=== PATIENT | male | born 1945 | race Caucasian/White ===

== ENCOUNTER 2023-04-15 07:24 | Inpatient (IN) ==
[2023-04-15] MEDS ORDERED: IOPAMIDOL 100 ML BOTTLE IV ONE (07:25)
[2023-04-15] MEDS ORDERED: 0.9 % SODIUM CHLORIDE 1,000 ML IV ONE (08:17)
[2023-04-15] MEDS ORDERED: ACETAMINOPHEN 1,000 MG/100 ML BAG IV ONE (08:17)
[2023-04-15 08:42] LABS: Basophils # (Auto) 0.01 K/mcL (0.00-0.30); Basophils % (Auto) 0.2 % (0.0-2.0); Eosinophils # (Auto) 0.01 K/mcL (0.00-0.70); Eosinophils % (Auto) 0.2 % (0.0-7.0); Hematocrit 48.5 % (40.1-51.0); Hemoglobin 16.2 g/dL (13.7-17.5); Lymphocytes % (Auto) 7.6 % (15.5-49.0); Mean Corpuscular HGB Conc 33.4 g/dL (31.0-36.0); Mean Platelet Volume 10.9 fL (8.8-12.5); Monocytes # (Auto) 0.66 K/mcL (0.10-0.90); Neutrophils % (Auto) 81.5 % (38.0-78.0); Platelet Count 205 K/mcL (140-440); RBC 4.85 M/mcL (4.63-6.08); Red Cell Distribution Width 13.4 % (11.5-14.5); WBC 6.6 K/mcL (4.5-11.0)
[2023-04-15 09:44] LABS: ALT/SGPT 16 U/L (<40); AST/SGOT 24 U/L (<40); Albumin 3.9 gm/dL (3.2-5.2); Albumin/Globulin Ratio 1.2 (1.0-2.3); Alkaline Phosphatase 92 U/L (39-117); Bilirubin,Total 0.6 mg/dL (0.1-1.0); Blood Urea Nitrogen 22 mg/dL (8-23); Calcium 9.2 mg/dL (8.6-10.4); Carbon Dioxide 26 mmol/L (22-30); Chloride 96 mmol/L (96-108); Globulin 3.2 gm/dL (2.2-3.7); Glomerular Filtration Rate 40; Glucose 229 mg/dL (70-105)
[2023-04-15] MEDS: 0.9 % SODIUM CHLORIDE 1,000 ML IV SCH ×4 (10:12→17:09)
[2023-04-15] MEDS ORDERED: OLANZapine 2.5 MG TABLET PO ONE (13:52)
[2023-04-15] MEDS ORDERED: OLANZapine 5 MG TABLET PO ONE (14:16)
[2023-04-15] MEDS ORDERED: OLANZapine 10 MG VIAL IM ONE (14:24)
[2023-04-15] MEDS ORDERED: DEXAMETHASONE 10 MG/ML VIAL IV ONE (15:23)
[2023-04-15] MEDS ORDERED: DEXTROSE 50% 50 ML VIAL IV PRN (16:32)
[2023-04-15] MEDS ORDERED: ONDANSETRON 4 MG/2 ML VIAL IV PRN (16:32)
[2023-04-15] MEDS ORDERED: LACTULOSE 20 GM/30 ML ORAL.SOL PO PRN (16:32)
[2023-04-15] MEDS ORDERED: SENNOSIDES 1 TABLET PO PRN (16:32)
[2023-04-15] MEDS ORDERED: METOPROLOL TARTRATE 5 MG/5 ML VIAL IV PRN (16:32)
[2023-04-15] MEDS ORDERED: HALOPERIDOL LACTATE 5 MG/ML VIAL IV PRN (16:32)
[2023-04-15] MEDS ORDERED: ACETAMINOPHEN 325 MG TABLET PO PRN (16:32)
[2023-04-15] MEDS ORDERED: DEXTROSE 31 GM ORAL.SUSP PO PRN (16:32)
[2023-04-15] MEDS ORDERED: REMDESIVIR 200 MG in 0.9 % SODIUM CHLORIDE 250 ML IV ONE (17:00)
[2023-04-15] MEDS: INSULIN LISPRO 1 UNIT/0.01 ML UNIT SQ SCH ×2 (17:14→20:59)
[2023-04-15 19:33] LABS: C-Reactive Protein 4.07 mg/dL (0.03-0.80)
[2023-04-15] MEDS ORDERED: QUEtiapine 25 MG TABLET PO SCH (21:00)
[2023-04-15] MEDS ORDERED: HEPARIN 5,000 UNIT/ML VIAL SQ SCH (21:00)
[2023-04-15] MEDS: DOCUSATE SODIUM 100 MG CAPSULE PO SCH (21:00)
[2023-04-15] MEDS ORDERED: INSULIN GLARGINE, HUMAN 1 UNIT/0.01 ML SQ SCH (21:00)
[2023-04-15] MEDS ORDERED: METOPROLOL TARTRATE 25 MG TABLET PO SCH (21:00)
[2023-04-15] MEDS: 0.9 % SODIUM CHLORIDE 10 ML SYRINGE IV SCH (21:01)
[2023-04-16] MEDS: 0.9 % SODIUM CHLORIDE 1,000 ML IV SCH (01:10)
[2023-04-16] MEDS: 0.9 % SODIUM CHLORIDE 10 ML SYRINGE IV SCH (05:43)
[2023-04-16] MEDS ORDERED: OMEPRAZOLE 20 MG CAPSULE PO SCH (07:30)
[2023-04-16 07:50] LABS: Albumin 3.3 gm/dL (3.2-5.2); Blood Urea Nitrogen 19 mg/dL (8-23); Carbon Dioxide 22 mmol/L (22-30); Chloride 105 mmol/L (96-108); Glomerular Filtration Rate 47; Glucose 176 mg/dL (70-105); Phosphorous 2.5 mg/dL (2.5-4.5)
[2023-04-16] MEDS ORDERED: HEPARIN 5,000 UNIT/ML VIAL IV ONE (07:57)
[2023-04-16] MEDS ORDERED: HEPARIN SOD,PORK IN 0.45% NACL 25,000 UNIT in PREMIX 1 BAG IV SCH (08:00)
[2023-04-16] MEDS ORDERED: FUROSEMIDE 40 MG/4 ML VIAL IV SCH (08:00)
[2023-04-16] MEDS ORDERED: HEPARIN SOD,PORK IN 0.45% NACL 500 ML IV ONE (08:11)
[2023-04-16] MEDS: DOCUSATE SODIUM 100 MG CAPSULE PO SCH (08:35)
[2023-04-16] MEDS ORDERED: METOPROLOL TARTRATE 5 MG/5 ML VIAL IV PRN ×3 (08:59→13:37)
[2023-04-16] MEDS ORDERED: ASPIRIN 81 MG TAB.CHEW PO SCH (09:00)
[2023-04-16] MEDS ORDERED: METOPROLOL TARTRATE 50 MG TABLET PO SCH ×2 (09:00→21:00)
[2023-04-16] MEDS ORDERED: REMDESIVIR 100 MG in 0.9 % SODIUM CHLORIDE 250 ML IV SCH (09:00)
[2023-04-16] MEDS ORDERED: DEXAMETHASONE 10 MG/ML VIAL IV SCH (09:00)
[2023-04-16] MEDS ORDERED: AMIODARONE 150 MG in DEXTROSE 5% IN WATER 50 ML IV ONE (09:00)
[2023-04-16] MEDS ORDERED: DONEPEZIL 10 MG TABLET PO SCH (09:00)
[2023-04-16] MEDS ORDERED: AMIODARONE 360 MG in PREMIX 1 BAG IV SCH ×2 (09:00→15:00)
[2023-04-16 09:57] LABS: Partial Thromboplastin Time 29.2 sec (20.0-37.0); Prothrombin Time 13.4 sec (11.9-14.5)
[2023-04-16 11:10] VITALS: TEMP 98
[2023-04-16] MEDS: INSULIN LISPRO 1 UNIT/0.01 ML UNIT SQ SCH ×2 (11:45→11:46)
[2023-04-16 12:11] VITALS: O2SAT 92
[2023-04-16] MEDS ORDERED: MEMANTINE 10 MG TABLET PO SCH (21:00)
[2023-04-16] MEDS ORDERED: GABAPENTIN 100 MG CAPSULE PO SCH (21:00)
[2023-04-16] MEDS ORDERED: traZODone HCL 100 MG TABLET PO SCH (21:00)
[2023-04-16] MEDS ORDERED: DIVALPROEX SODIUM 250 MG TABLET PO SCH (21:00)
[2023-04-16] MEDS ORDERED: PRAMIPEXOLE 0.25 MG TABLET PO SCH (21:00)
[2023-04-16] MEDS ORDERED: QUEtiapine 100 MG TABLET PO SCH (21:00)
== END 2023-04-16 14:00 | disposition short-term general hospital (02) | DRG 280 ==
LOC: ED 07:24 → ICU 16:24
PROVIDERS: ADMIT Internal Medicine; ATTEND Internal Medicine

== ENCOUNTER 2023-06-18 15:34 | Inpatient (IN) ==
[2023-06-18] MEDS ORDERED: IOPAMIDOL 100 ML BOTTLE IV ONE (15:35)
[2023-06-18 16:41] LABS: Basophils # (Auto) 0.03 K/mcL (0.00-0.30); Basophils % (Auto) 0.4 % (0.0-2.0); Eosinophils # (Auto) 0.07 K/mcL (0.00-0.70); Eosinophils % (Auto) 0.9 % (0.0-7.0); Hematocrit 54.7 % (40.1-51.0); Lymphocytes # (Auto) 1.86 K/mcL (1.50-4.80); Lymphocytes % (Auto) 24.5 % (15.5-49.0); Mean Cell Volume 99.3 fL (80.0-100.0); Mean Corpuscular HGB Conc 31.1 g/dL (31.0-36.0); Mean Platelet Volume 10.2 fL (8.8-12.5); Monocytes % (Auto) 9.2 % (1.0-12.0); Neutrophils % (Auto) 64.7 % (38.0-78.0); Platelet Count 234 K/mcL (140-440); RBC 5.51 M/mcL (4.63-6.08); Red Cell Distribution Width 13.5 % (11.5-14.5); WBC 7.6 K/mcL (4.5-11.0)
[2023-06-18 16:54] LABS: ALT/SGPT < 5 U/L (<40); AST/SGOT 16 U/L (<40); Albumin 3.7 gm/dL (3.2-5.2); Albumin/Globulin Ratio 1.5 (1.0-2.3); Alkaline Phosphatase 83 U/L (39-117); Bilirubin,Total 0.8 mg/dL (0.1-1.0); Blood Urea Nitrogen 23 mg/dL (8-23); Calcium 9.3 mg/dL (8.6-10.4); Carbon Dioxide 36 mmol/L (22-30); Chloride 92 mmol/L (96-108); Globulin 2.5 gm/dL (2.2-3.7); Glomerular Filtration Rate 40; Glucose 190 mg/dL (70-105)
[2023-06-18] MEDS: cefTRIAXone 2 GM in DEXTROSE 5% IN WATER 50 ML IV ONE (17:25)
[2023-06-18] MEDS: 0.9 % SODIUM CHLORIDE 500 ML IV ONE ×2 (17:25→19:50)
[2023-06-18] MEDS: diphenhydrAMINE 50 MG/ML VIAL IV ONE (17:25)
[2023-06-18] MEDS: methylPREDNISolone SOD SUCC 125 MG/2 ML VIAL IV ONE (17:25)
[2023-06-18] MEDS: MIDAZOLAM 2 MG/2 ML VIAL IV ONE (18:10)
[2023-06-18] MEDS: MIDAZOLAM 2 MG/2 ML VIAL ONE (18:40)
[2023-06-18] MEDS: HALOPERIDOL LACTATE 5 MG/ML VIAL IM ONE (18:52)
[2023-06-18 20:25] LABS: Appearance,Urine Clear (Clear); Bilirubin,Urine Negative (Negative); Color,Urine Yellow; Culture Indicated,Urine No; Glucose,Urine (UA) >=1000 mg/dL (Negative); Ketones,Urine Negative (Negative); Leukocyte Esterase,Urine Negative /uL (Negative); Nitrate,Urine Negative (Negative); Protein,Urine Negative (Negative); Urine Blood Trace-intact ery/mcL (Negative); Urine RBC 5 /hpf (0-3); Urine Squamous Epithelial Cell 4 /hpf (0-4); Urine WBC 3 /hpf (0-4); Urobilinogen,Urine Normal
[2023-06-18] MEDS ORDERED: ONDANSETRON 4 MG/2 ML VIAL IV PRN (21:50)
[2023-06-18] MEDS ORDERED: IPRATROPIUM/ALBUTEROL 3 ML AMPUL.NEB NEB PRN (21:50)
[2023-06-18] MEDS ORDERED: DEXTROSE 31 GM ORAL.SUSP PO PRN (21:50)
[2023-06-18] MEDS ORDERED: DEXTROSE 50% 50 ML VIAL IV PRN (21:50)
[2023-06-18] MEDS: DOCUSATE SODIUM 100 MG CAPSULE PO SCH (22:39)
[2023-06-18] MEDS: SENNOSIDES 1 TABLET PO SCH (22:39)
[2023-06-18] MEDS: 0.9 % SODIUM CHLORIDE 1,000 ML IV SCH (22:56)
[2023-06-18] MEDS: 0.9 % SODIUM CHLORIDE 10 ML SYRINGE IV SCH (22:56)
[2023-06-18] MEDS: INSULIN LISPRO 1 UNIT/0.01 ML UNIT SQ SCH (23:03)
[2023-06-19] MEDS: HALOPERIDOL LACTATE 5 MG/ML VIAL IM PRN (04:36)
[2023-06-19 06:48] LABS: Basophils # (Auto) 0.01 K/mcL (0.00-0.30); Basophils % (Auto) 0.1 % (0.0-2.0); Eosinophils # (Auto) 0 K/mcL (0.00-0.70); Eosinophils % (Auto) 0 % (0.0-7.0); Hematocrit 57.9 % (40.1-51.0); Lymphocytes # (Auto) 0.86 K/mcL (1.50-4.80); Lymphocytes % (Auto) 9.7 % (15.5-49.0); Mean Cell Volume 100.2 fL (80.0-100.0); Mean Corpuscular HGB Conc 31.1 g/dL (31.0-36.0); Mean Platelet Volume 10.6 fL (8.8-12.5); Monocytes # (Auto) 0.11 K/mcL (0.10-0.90); Monocytes % (Auto) 1.2 % (1.0-12.0); Neutrophils % (Auto) 88.8 % (38.0-78.0); Platelet Count 227 K/mcL (140-440); RBC 5.78 M/mcL (4.63-6.08); Red Cell Distribution Width 13.3 % (11.5-14.5); WBC 8.9 K/mcL (4.5-11.0)
[2023-06-19 07:33] LABS: ALT/SGPT < 5 U/L (<40); AST/SGOT 14 U/L (<40); Albumin 3.6 gm/dL (3.2-5.2); Albumin/Globulin Ratio 1.2 (1.0-2.3); Alkaline Phosphatase 89 U/L (39-117); Bilirubin,Total 0.7 mg/dL (0.1-1.0); Blood Urea Nitrogen 21 mg/dL (8-23); Carbon Dioxide 30 mmol/L (22-30); Chloride 96 mmol/L (96-108); Globulin 2.9 gm/dL (2.2-3.7); Glomerular Filtration Rate 43; Glucose 225 mg/dL (70-105)
[2023-06-19] MEDS: cefTRIAXone 1 GM VIAL IV SCH (08:57)
[2023-06-19 10:07] LABS: Estimated Average Glucose(eAG) 217 mg/dL; Hemoglobin A1C 9.2 % Hgb (4.0-6.0)
[2023-06-19] MEDS: PROPRANOLOL 60 MG CAP.XL.24H PO SCH (14:08)
[2023-06-19] MEDS ORDERED: PROPRANOLOL 60 MG PO SCH (15:00)
[2023-06-19] MEDS: POTASSIUM CHLORIDE 10 MEQ TABLET PO SCH (18:04)
[2023-06-19] MEDS ORDERED: DIVALPROEX SODIUM 250 MG TABLET PO SCH (21:00)
[2023-06-19] MEDS: DIVALPROEX SODIUM 250 MG TABLET PO SCH (21:21)
[2023-06-19] MEDS: PRAMIPEXOLE 0.25 MG TABLET PO SCH (21:23)
[2023-06-19] MEDS: traZODone HCL 100 MG TABLET PO SCH (21:27)
[2023-06-19] MEDS: QUEtiapine 100 MG TABLET PO SCH (21:28)
[2023-06-19] MEDS: MEMANTINE 10 MG TABLET PO SCH (21:30)
[2023-06-19] MEDS: GABAPENTIN 100 MG CAPSULE PO SCH (21:31)
[2023-06-20] MEDS: OMEPRAZOLE 20 MG CAPSULE PO SCH (08:28)
[2023-06-20] MEDS: DIAZEPAM 2 MG TABLET PO SCH (10:03)
[2023-06-20] MEDS: ASPIRIN 81 MG TAB.CHEW PO SCH (10:04)
[2023-06-20] MEDS: PRAMIPEXOLE 0.25 MG TABLET PO SCH (10:05)
[2023-06-20] MEDS: ACETAMINOPHEN 325 MG TABLET PO PRN (10:06)
[2023-06-20] MEDS: DONEPEZIL 10 MG TABLET PO SCH (10:06)
[2023-06-20] MEDS: Empagliflozin 10 mg tablet PO SCH (10:09)
[2023-06-23 11:13] VITALS: TEMP 97.5; O2SAT 94
== END 2023-06-23 15:10 | DRG 57 ==
LOC: ED 15:34 → MEDSUR 21:44
PROVIDERS: ADMIT Internal Medicine; ATTEND Internal Medicine